=== PATIENT | male | born 1980 | race Caucasian/White ===

== ENCOUNTER 2022-02-01 09:45 | Outpatient (CLI) | payer OTHER ==
--- NOTE | 2022-02-01 12:04 | MRI Report ---
PROCEDURE: Brain W/WO INDICATIONS: PAROSMIA CONTRAST: IV CONTRAST: Gadavist ml: 9.1 TECHNIQUE: Noncontrast axial T1 spin echo, axial T2 fast spin echo, sagittal and axial FLAIR, coronal T2 fast sp in echo, axial gradient echo, axial diffusion and ADC through the brain. After the administration of contrast, axial and coronal T1 spin echo with fat saturation through the brain. COMPARISON: None. FINDINGS: Image quality: Excellent. CSF spaces: Basal cisterns are patent. No extra-axial fluid collections. Ventricles are normal in size and shape. Brain: No midline shift. No intracranial bleeds or masses. No abnormal intracranial enhancement. There is cerebral volume loss for age. There is periventricular white matter chronic small vessel is chemic change. The brainstem appears normal. Diffusion-weighted images demonstrate no acute ischemi c insults. No chronic ischemic insults. Normal intravascular flow voids are present. Skull and face: Calvarial marrow is normal in signal. Orbits appear normal. Sinuses: Sinuses and mastoids appear clear. IMPRESSION: 1. Negative evaluation of the brain. 2. No acute process. No recent infarct. 3. No evidence of sinus disease. Reviewed by: Victor Hugo Milligan MD on 02/01/2022 12:02 PM PDT Approved by: Victor Hugo Milligan MD on 02/01/2022 12:02 PM PDT Station ID: [id number]
== END 2022-02-01 09:46 | disposition home or self-care (01) ==
LOC: DI 09:45
DX: R43.1 Parosmia (principal)
CPT/HCPCS: 70553; A9585